=== PATIENT | male | born 2000 | race Caucasian/White ===

== ENCOUNTER 2024-02-28 13:18 | Emergency (ER) | payer OTHER ==
[~2024-02-28] VITALS: Ht 170.2 cm; Wt 68.0 kg
[2024-02-28 13:55] VITALS: BP 137/103; PULSE 91; RESP 18; TEMP 98.6; O2SAT 97
[2024-02-28] MEDS: FLUORESCEIN OPTH STRIP 1 MG OP ONE (14:18)
[2024-02-28] MEDS: TETRACAINE HCL/PF 0.5% OPTH 4 ML BTL OP ONE (14:18)
[2024-02-28] MEDS ORDERED: IBUP-1842 PO (14:40)
[2024-02-28] MEDS ORDERED: CIPR10DR4 RIGHT EYE (14:40)
== END 2024-02-28 15:30 | disposition home or self-care (01) ==
LOC: MED 13:18
DX: T15.01XA Foreign body in cornea, right eye, initial encounter (principal); Z79.899 Other long term (current) drug therapy
CPT/HCPCS: 65220; 99284